=== PATIENT | female | born 1940 | race Caucasian/White ===

== ENCOUNTER → 2016-06-14 | Outpatient (CLI) | payer MEDICARE, OTHER ==
[~2016-06-14] MED LIST: AMLO5TAB22 PO; ANAS1TAB PO; COZA100T PO; DIAZ5TAB PO; FLUO20SO3 PO; HYDR-3516 PO; MOBI15TA PO; PROZ20CA11 PO; REFR0.5D4 EACH EYE
[2016-06-14 13:26] LABS: AUTOMATED NEUTROPHIL # 4.4 TH/MM3 (1.8-7.7); BASOPHIL % 0.2 % (0.0-2.0); EOSINOPHIL # 0.1 TH/MM3 (0-0.4); HEMATOCRIT 40.9 % (35.0-46.0); HEMO FLAGS DIFF FINAL; LYMPHOCYTE # 1.1 TH/MM3 (1.0-4.8); MEAN CELL VOLUME 98.4 FL (80.0-100.0); MEAN CORPUSCULAR HEMOGLOBIN 33.5 PG (27.0-34.0); MONO % 9.4 % (0.0-8.0); NEUT % 70.4 % (16.0-70.0); PLATELET COUNT 206 TH/MM3 (150-450); RED BLOOD COUNT 4.15 MIL/MM3 (4.00-5.30); RED CELL DISTRIBUTION WIDTH 12.7 % (11.6-17.2); WHITE BLOOD COUNT 6.2 TH/MM3 (4.0-11.0)
[2016-06-14 14:01] LABS: BICARBONATE 28.8 MEQ/L (21.0-32.0); POTASSIUM 4.1 MEQ/L (3.5-5.1)
--- NOTE | 2016-06-15 10:45 | EKG ---
Date Performed: 06/14/2016 Time Performed: 12:41:19 PTAGE: 75 years EKG: Sinus rhythm NORMAL ECG Compared to prior tracing no significant change PREVIOUS TRACING DOCTOR: Susy Austin Interpretating Date/Time 06/15/2016 10:38:07
== END ==
LOC: CPRE 12:10
PROVIDERS: ATTEND Orthopaedic Surgery
DX: Z01.810 Encounter for preprocedural cardiovascular examination (principal); Z01.812 Encounter for preprocedural laboratory examination; M20.61 Acquired deformities of toe(s), unspecified, right foot
CPT/HCPCS: 36415; 80048; 85025; 93005

== ENCOUNTER → 2016-06-18 | Day surgery (SDC) | payer MEDICARE, OTHER ==
[~2016-06-18] VITALS: Ht 167.6 cm; Wt 74.3 kg
[~2016-06-18] MED LIST changes: +ACETAMINOPHEN 1000 MG/100 ML VIAL IV ONE; +ACETAMINOPHEN/HYDROcodone 325 MG/5 MG TAB PO PRN; +BUPIVACAINE HCL PF 0.5% 30 ML VIAL ONE; +CHLORHEXIDINE GLUCONATE 2 % 1 PACK (2 CLOTHS) TOPICAL PRN; +CHLORHEXIDINE GLUCONATE 4% SOLN 120 ML BTL TOPICAL SCH; +DO NOT ADM ANY ANTICOAGULANT DRUGS PRN; +FAMOTIDINE 20 MG/2 ML VIAL ONE; +INSULIN HUMAN REGULAR 1,000 UNITS/10 ML VIAL SQ PRN; +LACTATED RINGER'S 1000 ML INJ 1,000 ML IV SCH; +LACTATED RINGER'S 1000 ML IV PRN; +MEPERIDINE HCL 50 MG/ML VIAL ONE; +METOPROLOL TARTRATE 25 MG TAB PO PRN; +MIDAZOLAM HCL 2 MG/2 ML VIAL ONE; +MORPHINE SULFATE 4 MG/ML INJ IV PUSH PRN; +ONDANSETRON HCL 4 MG/2 ML VIAL IV PRN; +ONDANSETRON HCL 4 MG/2 ML VIAL IV PUSH ONE; +POVIDONE IODINE 5% (ANTISEPSIS KIT) 4 APPLICATIONS EACH NARE PRN; +PROPOFOL 200 MG/20 ML AMP IV ONE; +SODIUM CHLORID 0.9% 500 ML IV PRN; +SODIUM CHLORIDE 0.9% FLUSH 5 ML FLUSH IVF PRN; +SODIUM CHLORIDE 0.9% FLUSH 5 ML FLUSH IVF SCH; +ePHEDrine/NS 25 MG/5 ML SYR IV ONE
[2016-06-18 11:51] VITALS: BP 161/78; PULSE 86; RESP 18; TEMP 97.7; O2SAT 98
[2016-06-18 15:20] VITALS: BP 164/82; PULSE 72; RESP 16; TEMP 98.4; O2SAT 98
--- NOTE | 2016-06-21 12:12 | MP ---
cc: ASHLEE STOKES DATE OF SURGERY: 06/18/2016 PREOPERATIVE DIAGNOSIS Painful hard corn medial aspect right second toe. POSTOPERATIVE DIAGNOSIS Painful hard corn medial aspect right second toe. OPERATIVE PROCEDURE Excision of phalangeal condyles PIP joint right second toe. SURGEON Dr. Stokes. ANESTHESIA Local (0.5% plain, bupivacaine and MAC). TECHNIQUE Once the patient was prepared by Anesthesiologist with some sedation and LMA, the right foot and ankle was thoroughly prepped with Hibiclens, draped in routine fashion. 0.5% plain Marcaine with a 27 gauge needle was instilled into the subcutaneous tissue on the dorsal aspect of the MP joint of the right second toe and then in the first web space. Marcaine was also place subcutaneously over the intended site of incision. A curved incision was made based on the plantar aspect around the bony prominence and skin flap was raised. The joint was incised, soft tissue was exposed and then the medial condyle of the proximal phalanx was excised with a portion of the medial condyle of the proximal phalanx was excised with a rongeur. The same was done to the base of the middle phalanx. This was then smoothened out with a rasp. Palpation reveals everything to be smooth with no prominence. The wound was irrigated with saline solution followed by closure of the skin with interrupted vertical mattress 4-0 Nylon sutures. Dressing was applied with Xeroform, 4x4s, Estefania and Adan bandage. The patient was transferred to the recovery room in satisfactory condition. The patient tolerated the procedure well. TRANSFUSIONS AND COMPLICATIONS None. POSTOPERATIVE CONDITION Satisfactory. PROGNOSIS Good. MD BIRD Monzon/CARMELA /1:58 PM /12:03 PM
== END | disposition home or self-care (01) ==
LOC: HSDC 11:12
PROVIDERS: ATTEND Orthopaedic Surgery
DX: M20.61 Acquired deformities of toe(s), unspecified, right foot (principal)
CPT/HCPCS: 01480; 28153; J0131; J2175; J2250; J2405; J3010; J7120; L3260

== ENCOUNTER 2017-02-17 11:38 | Emergency (ER) | payer MEDICARE, OTHER ==
[~2017-02-17] VITALS: Ht 165.1 cm; Wt 74.8 kg
[~2017-02-17 11:38] MED LIST changes: -ACETAMINOPHEN 1000 MG/100 ML VIAL IV ONE; -ACETAMINOPHEN/HYDROcodone 325 MG/5 MG TAB PO PRN; -AMLO5TAB22 PO; -BUPIVACAINE HCL PF 0.5% 30 ML VIAL ONE; -CHLORHEXIDINE GLUCONATE 2 % 1 PACK (2 CLOTHS) TOPICAL PRN; -CHLORHEXIDINE GLUCONATE 4% SOLN 120 ML BTL TOPICAL SCH; -DO NOT ADM ANY ANTICOAGULANT DRUGS PRN; -FAMOTIDINE 20 MG/2 ML VIAL ONE; -FLUO20SO3 PO; -HYDR-3516 PO; -INSULIN HUMAN REGULAR 1,000 UNITS/10 ML VIAL SQ PRN; -LACTATED RINGER'S 1000 ML INJ 1,000 ML IV SCH; -LACTATED RINGER'S 1000 ML IV PRN; -MEPERIDINE HCL 50 MG/ML VIAL ONE; -METOPROLOL TARTRATE 25 MG TAB PO PRN; -MIDAZOLAM HCL 2 MG/2 ML VIAL ONE; -MOBI15TA PO; -MORPHINE SULFATE 4 MG/ML INJ IV PUSH PRN; +NAPR220C22 PO; -ONDANSETRON HCL 4 MG/2 ML VIAL IV PRN; -ONDANSETRON HCL 4 MG/2 ML VIAL IV PUSH ONE; -POVIDONE IODINE 5% (ANTISEPSIS KIT) 4 APPLICATIONS EACH NARE PRN; -PROPOFOL 200 MG/20 ML AMP IV ONE; -SODIUM CHLORID 0.9% 500 ML IV PRN; -SODIUM CHLORIDE 0.9% FLUSH 5 ML FLUSH IVF PRN; -SODIUM CHLORIDE 0.9% FLUSH 5 ML FLUSH IVF SCH; -ePHEDrine/NS 25 MG/5 ML SYR IV ONE
[2017-02-17 11:47] VITALS: BP 143/83; PULSE 98; RESP 18; TEMP 98.7; O2SAT 97
[2017-02-17] MEDS ORDERED: CELE20TA PO (11:53)
--- NOTE | 2017-02-17 12:14 | PD ---
HPI Chief Complaint: Skin Problem Time Seen by Provider: 11:46 Travel History International Travel<30 days: No Contact w/Intl Traveler<30days: No Traveled to known affect area: No History of Present Illness HPI 76-year-old female presents the emergency Department with superficial skin tears to the right dorsal wrist from a vacuum book cleaner that she was utilizing earlier this morning. Patient is unsure of her last tetanus shot. Pain is minimal. Bleeding is currently controlled with dressing applied by . No other injury. Patient is allergic to sulfa and penicillin and vancomycin. PFSH Past Medical History Heart Rhythm Problems: No Cancer: Yes (breast cancer (chemo/radiation 2014)) Cardiac Catheterization: No Cardiovascular Problems: No High Cholesterol: No Chemotherapy: Yes Congestive Heart Failure: No Diabetes: No Diminished Hearing: No Endocrine: No Gastrointestinal Disorders: Yes (COLON POLYPS) Glaucoma: No Genitourinary: No Hepatitis: No Hiatal Hernia: No Hypertension: Yes Immune Disorder: No Medical other: No Musculoskeletal: Yes (ARTHRITIS; BACK AND NECK PAIN, RIGHT SHOULDER) Neurologic: No Psychiatric: Yes (anxiety, depression) Reproductive: No Thyroid Disease: No PNEUMOCCOCAL Vaccine (Year): 2 ?: Not Menopausal: Yes Past Surgical History Abdominal Surgery: Yes (LAP CHOLECYSTECTEOMY 2003) AICD: No Body Medical Devices: NONE Cardiac Surgery: No Cholecystectomy: Yes Coronary Artery Bypass Graft: No Ear Surgery: No Endocrine Surgery: No Eye Surgery: Yes (BILATERAL CATARACTS) Genitourinary Surgery: No Gynecologic Surgery: No Joint Replacement: No Neurologic Surgery: No Oral Surgery: No Pacemaker: No Thoracic Surgery: Yes (left breast biopsy, right lumpectomy w/ lymph node removal ) Other Surgery: Yes Family History Family Myocardial Infarction: Yes Social History Alcohol Use: No Tobacco Use: No Substance Use: No Allergies-Medications (Allergen,Severity, Reaction): Coded Allergies: Sulfa (Sulfonamide Antibiotics) (Verified Allergy, Severe, HIVES, 02/17/17) penicillin G (Verified Allergy, Severe, HIVES, 02/17/17) vancomycin (Verified Allergy, Unknown, Rash, 02/17/17) redness Reported Meds & Prescriptions Reported Meds & Active Scripts Active Reported Celexa (Citalopram Hydrobromide) 20 Mg Tab 20 Mg PO DAILY Refresh Tears Opth Drops (Carboxymethylcellulose Sodium Opth Drops) 0.5% Drops 1 Drop EACH EYE PRN Cozaar (Losartan Potassium) 100 Mg Tab 100 Mg PO DAILY Diazepam 5 Mg Tab 5 Mg PO BID PRN Anastrozole 1 Mg Tab 1 Mg PO DAILY Review of Systems Except as stated in HPI: all other systems reviewed are Neg General / Constitutional: No: Fever Eyes: No: Visual changes HENT: No: Headaches Cardiovascular: No: Chest Pain or Discomfort Respiratory: No: Shortness of Breath Gastrointestinal: No: Abdominal Pain Genitourinary: No: Dysuria Musculoskeletal: No: Pain Skin: Positive Lesions (see history present illness.), No Rash Neurologic: No: Weakness Psychiatric: No: Depression Endocrine: No: Polydipsia Hematologic/Lymphatic: No: Easy Bruising Physical Exam Narrative GENERAL: Patient is in no acute distress. SKIN: Warm and dry. Atrophic. Normal color. Normal turgor. Patient has 2 V- shaped skin tears to the distal dorsal right wrist which are well approximated, and bleeding controlled. HEAD: Atraumatic. Normocephalic. EYES: Pupils equal and round. No scleral icterus. No injection or drainage. ENT: No nasal bleeding or discharge. Mucous membranes pink and moist. Pharynx is clear. Airway is patent. NECK: Trachea midline. Supple and nontender. CARDIOVASCULAR: Regular rate and rhythm. RESPIRATORY: No accessory muscle use. Clear to auscultation. Breath sounds equal bilaterally. MUSCULOSKELETAL: Extremities without clubbing, cyanosis, or edema. No obvious deformities. NEUROLOGICAL: Awake and alert. No obvious cranial nerve deficits. Motor grossly within normal limits. Five out of 5 muscle strength in the arms and legs. Normal speech. PSYCHIATRIC: Appropriate mood and affect; insight and judgment normal. Data Data Last Documented VS Vital Signs Date Time Temp Pulse Resp B/P (MAP) Pulse Ox O2 Delivery O2 Flow Rate FiO2 02/17/17 11:47 98.7 98 18 143/83 (103) 97 Orders Orders Tetanus/Diphtheria Tox Adult (Tetanus/Di (02/17/17 12:15) [facility] Medical Decision Making Medical Screen Exam Complete: Yes Emergency Medical Condition: Yes Differential Diagnosis Laceration. Skin tear. Need for tetanus. Narrative Course No type of closure is felt warranted at this time. Wound is covered with Xeroform gauze, Telfa pad, and Estefania. Wound instructions are given. Tetanus is given IM. Patient follow-up as needed. Diagnosis Primary Impression: Tear of skin of right wrist Qualified Codes: S61.511A - Laceration without foreign body of right wrist, initial encounter Referrals: Primary Care Physician Patient Instructions: General Instructions, Skin Tear (ED) Additional Instructions: No type of closure is felt warranted at this time. Wound is covered with Xeroform gauze, Telfa pad, and Estefania. Wound instructions are given. Tetanus is given IM. Patient follow-up as needed. Med/Other Pt SpecificInfo: No Meds Exist/No RX given, Wound Care Disposition: 01 DISCHARGE HOME Condition: Stable Damion Gautam Feb 17, 2017 12:14
[2017-02-17] MEDS ORDERED: TETANUS/DIPHTHERIA TOXOID ADULT 0.5 ML VIAL IM ONE (12:15)
== END 2017-02-17 12:24 | disposition home or self-care (01) ==
LOC: PHEFT 11:38
DX: S61.511A Laceration without foreign body of right wrist, initial encounter (principal); X58.XXXA Exposure to other specified factors, initial encounter; Y93.E3 Activity, vacuuming; Z23 Encounter for immunization
CPT/HCPCS: 90471; 90714